=== PATIENT | male | born 1940 | race Hispanic/Latino ===

== ENCOUNTER → 2018-12-15 | Outpatient (CLI) | payer MEDICARE ==
[~2018-12-15] MED LIST: ASPIRIN81 MG PO; ATORVASTATIN CA10 MG PO; CLOPIDOGREL75 MG PO; FINASTERIDE5 MG PO; ISOSORBIDE MONO30 MG PO; LEVAQUIN500 MG PO; METOPROLOL TART25 MG PO; PROAIR HFA INH8.5 GM; TAMSULOSIN HCL0.4 MG PO
--- NOTE | 2018-12-15 17:58 | Diagnostic Imaging Report ---
EXAM: CT Chest, high resolution, WITHOUT contrast INDICATION: Interstitial lung disease. Cough. COMPARISON: None TECHNIQUE: Chest was scanned utilizing a multidetector helical scanner from the lung apex through the level of the adrenal glands without administration of IV contrast. Absence of intravenous contrast decreases sensitivity for detection of lymphadenopathy and vascular pathology. Scan was performed during supine expiration, supine inspiration and prone inspiration. Coronal and sagittal reformations were obtained. HRCT protocol was performed. IV CONTRAST: None COMPLICATIONS: None RADIATION DOSE: Total DLP: 1559.99 mGy*cm Estimated effective dose: (DLP x 0.014 x size factor) mSv CTDIvol has been reviewed. It is below the limits set by the Radiation Protocol Committee (RPC). Dose modulation, iterative reconstruction, and/or weight based adjustment of the mA/kV was utilized to reduce the radiation dose to as low as reasonably achievable. FINDINGS: LINES/ TUBES: None. LUNGS AND AIRWAYS: Severe and show lung disease with subpleural reticulation, honeycombing, and traction bronchiectasis. No significant groundglass components. There is basilar predominance. Majority of the fibrotic changes is along the pleural surfaces and adjacent to the fissures. On expiration view, no significant air trapping. PLEURA: The pleural spaces are clear. HEART AND MEDIASTINUM: The thyroid gland is normal. No mediastinal, hilar or axillary lymphadenopathy. The heart is normal in size. There is no pericardial effusion. LAD coronary artery stent. Main pulmonary artery measures 2.4 cm in diameter and ascending aorta measures 2.7 cm. UPPER ABDOMEN: Unremarkable. BONES: The visualized bony thorax is within normal limits. SOFT TISSUES: Unremarkable. 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 No definite focal pneumonia. Signed by: Dr. David Riggs M.D. on 12/15/2018 5:55 PM
== END ==
LOC: CT 15:59
DX: J84.9 Interstitial pulmonary disease, unspecified (principal)
CPT/HCPCS: 71250

== ENCOUNTER → 2021-11-05 | Outpatient (CLI) | payer MEDICARE | LOC: CT 15:54 | DX: J84.9 Interstitial pulmonary disease, unspecified (principal); R05.3 Chronic cough | CPT/HCPCS: 71250 ==

== ENCOUNTER → 2023-01-13 | Outpatient (CLI) | payer MEDICARE | LOC: CT 15:50 | PROVIDERS: ATTEND Internal Medicine Pulmonary Disease | DX: R05.3 Chronic cough (principal); J84.10 Pulmonary fibrosis, unspecified | CPT/HCPCS: 71250 ==

== ENCOUNTER → 2023-11-10 | Outpatient (REF) | payer MEDICARE | LOC: DX 11:32 | PROVIDERS: ATTEND Family Medicine | DX: M81.0 Age-related osteoporosis without current pathological fracture (principal) | CPT/HCPCS: 77080 ==

== ENCOUNTER → 2024-02-14 | Outpatient (REF) | payer MEDICARE | LOC: RAD 10:30 | PROVIDERS: ATTEND Family Medicine | DX: R06.02 Shortness of breath (principal); R05.3 Chronic cough | CPT/HCPCS: 71046 ==

== ENCOUNTER → 2025-07-02 | Outpatient (REF) | payer MEDICARE | LOC: CT 11:53 | PROVIDERS: ATTEND Internal Medicine Pulmonary Disease | DX: J84.10 Pulmonary fibrosis, unspecified (principal); R91.1 Solitary pulmonary nodule | CPT/HCPCS: 71250 ==